=== PATIENT | female | born 1945 | race Two or more races ===

== ENCOUNTER 2020-04-22 06:34 | Outpatient (CLI) | payer MEDICARE, OTHER | END 2020-04-22 23:59 | disposition home or self-care (01) | LOC: LAB 06:34 | PROVIDERS: ATTEND Ophthalmology | DX: Z01.812 Encounter for preprocedural laboratory examination (principal); Z20.828 Contact with and (suspected) exposure to other viral communicable diseases; H25.011 Cortical age-related cataract, right eye ==

== ENCOUNTER 2020-04-24 06:22 | Day surgery (SDC) | payer MEDICARE, OTHER ==
[~2020-04-24 06:22] MED LIST: BALANCED SALT IRRIG SOLN COMB1 500 ML, EPINEPHRINE-PF 1:1000 0.5 MG IO ONE
[2020-04-24] MEDS ORDERED: TROPICAMIDE 1% OPHT DROP 3 ML BOTTLE ONE (06:38)
[2020-04-24] MEDS ORDERED: CIPROFLOXACIN 0.3% OPHT DROP 2.5 ML BOTTLE ONE (06:38)
[2020-04-24] MEDS ORDERED: KETOROLAC 0.5% OPHT DROP 3 ML BOTTLE ONE (06:38)
[2020-04-24] MEDS ORDERED: CYCLOPENTOLATE 1% OPHT DROP 2 ML BOTTLE ONE (06:38)
[2020-04-24] MEDS ORDERED: PHENYLEPHRINE 2.5% OPHT DROP 2 ML BOTTLE ONE (06:39)
[2020-04-24] MEDS ORDERED: ACETYLCHOLINE CHLORIDE 1% OPHT 1 EA KIT ONE (07:17)
[2020-04-24] MEDS ORDERED: BALANCED SALT IRRIG SOLN COMB2 15 ML IRRIG.SOLN ONE (07:17)
[2020-04-24] MEDS ORDERED: BUPIVACAINE PF 0.5% 30 ML VIAL ONE (07:17)
[2020-04-24] MEDS ORDERED: LIDOCAINE-MPF 2% 5 ML VIAL ONE (07:17)
[2020-04-24] MEDS ORDERED: NEO/POLYMYX B/DEXAME OPHT OINT 3.5 GM TUBE ONE (07:17)
[2020-04-24] MEDS ORDERED: MOXIFLOXACIN HCL 3 ML OPHT DROPS ONE (07:17)
[2020-04-24] MEDS ORDERED: TIMOLOL MALEATE 0.5% OPHT DROP 5 ML BOTTLE ONE (07:17)
[2020-04-24] MEDS ORDERED: TRYPAN BLUE 0.5 ML DISP.SYRIN ONE (07:17)
[2020-04-24] MEDS ORDERED: HYALURONATE SODIUM 12.8 MG/0.8 ML DISP.SYRIN ONE (07:18)
[2020-04-24] MEDS ORDERED: HYALURONIDASE,OVINE 200 UNITS/ML VIAL ONE (07:18)
[2020-04-24] MEDS ORDERED: FENTANYL CITRATE 100 MCG/2 ML AMPUL ONE (07:56)
[2020-04-24] MEDS ORDERED: BALANCED SALT IRRIG SOLN COMB1 500 ML ONE (08:35)
[2020-04-24] MEDS ORDERED: BALANCED SALT IRRIG SOLN COMB1 500 ML, EPINEPHRINE-PF 1:1000 0.5 MG IO ONE ×2 (10:00)
== END 2020-04-24 09:50 | disposition home or self-care (01) ==
LOC: DS 06:22
PROVIDERS: ATTEND Ophthalmology
DX: H25.89 Other age-related cataract (principal); I10 Essential (primary) hypertension; I25.10 Atherosclerotic heart disease of native coronary artery without angina pectoris; E78.00 Pure hypercholesterolemia, unspecified; M19.90 Unspecified osteoarthritis, unspecified site; Z79.82 Long term (current) use of aspirin; Z79.899 Other long term (current) drug therapy; Z98.890 Other specified postprocedural states; Z90.710 Acquired absence of both cervix and uterus; Z88.8 Allergy status to other drugs, medicaments and biological substances
CPT/HCPCS: 66984; 71045; J0171; J3010; J3471; J3490 ×2; J7120; J7321; V2632; A4663; Q9968

== ENCOUNTER 2021-08-25 20:09 | Emergency (ER) | payer MEDICARE, OTHER ==
[~2021-08-25] VITALS: Ht 165.1 cm; Wt 70.3 kg
[2021-08-25] MEDS ORDERED: ONDANSETRON 4 MG/2 ML VIAL IV ONE (21:15)
[2021-08-25] MEDS ORDERED: IV NORMAL SALINE 1000 ML BAG IV ONE (21:15)
[2021-08-25] MEDS ORDERED: ONDANSETRON 4 MG/2 ML VIAL ONE (21:41)
[2021-08-25 21:42] LABS: HEMATOCRIT 39.4 % (31.2-41.9); MEAN CORPUSCULAR HEMOGLOBIN 29.1 uug (24.7-32.8); MEAN CORPUSCULAR VOLUME 84.9 fL (75.5-95.3); PLATELET COUNT (AUTO) 184 K/uL (179-408)
[2021-08-25 21:50] LABS: CARBON DIOXIDE 27 mmol/L (21-32); CHLORIDE 96 mmol/L (98-107); CREATININE 1.1 mg/dL (0.6-1.3); GLUCOSE 163 mg/dL (74-106); POTASSIUM 3.5 mmol/L (3.5-5.1); UREA NITROGEN, BLOOD 16 mg/dL (7-18)
[2021-08-25 21:58] LABS: ALANINE AMINOTRANSFERASE 31 U/L (14-59); ALKALINE PHOSPHATASE 99 U/L (50-136); ASPARTATE AMINOTRANSFERASE 13 U/L (15-37); BILIRUBIN,DIRECT 0.1 mg/dL (0.0-0.2); BILIRUBIN,TOTAL 0.4 mg/dL (0.2-1.0); TOTAL PROTEIN, SERUM 7.6 g/dL (6.4-8.2)
[2021-08-25 23:32] LABS: *BILIRUBIN,URIN NEGATIVE (NEGATIVE); *BLOOD, URINE NEGATIVE (NEGATIVE); *CLARITY,URINE CLEAR (CLEAR); *COLOR,URINE YELLOW (YELLOW); *KETONES,URINE NEGATIVE (NEGATIVE); *UROBILINOGEN,URINE 0.2 E.U./dl (NORMAL); LEUKOCYTE ESTERASE ,URINE NEGATIVE (NEGATIVE); NITRITE, URINE NEGATIVE (NEGATIVE); UGLUCOSE NEGATIVE (NEGATIVE)
[2021-08-26] MEDS ORDERED: GABA-532 PO (00:01)
--- NOTE | 2021-08-26 00:07 | NUR ---
denies nausea and vomiting , daughter at bedside , iv site removed , pressure applied
--- NOTE | 2021-08-26 00:13 | NUR ---
ambulatory , instructions given how to take the medications , verbalizes understanding
== END 2021-08-26 00:16 | disposition home or self-care (01) ==
LOC: ER 20:12
DX: R11.2 Nausea with vomiting, unspecified (principal); T40.2X5A Adverse effect of other opioids, initial encounter; Y92.019 Unspecified place in single-family (private) house as the place of occurrence of the external cause; I25.10 Atherosclerotic heart disease of native coronary artery without angina pectoris; Z95.5 Presence of coronary angioplasty implant and graft; I45.10 Unspecified right bundle-branch block; Z82.49 Family history of ischemic heart disease and other diseases of the circulatory system; G89.29 Other chronic pain; M54.30 Sciatica, unspecified side; M54.9 Dorsalgia, unspecified; R03.0 Elevated blood-pressure reading, without diagnosis of hypertension
CPT/HCPCS: 36415; 80048; 80076; 81003; 84484 ×2; 85025; 93005; 96361; 96374; 99284; J2405; A4663; J7030